=== PATIENT | male | born 1950 | race Caucasian/White ===

== ENCOUNTER 2018-02-27 05:56 | Inpatient (IN) | payer OTHER, MEDICARE ==
[~2018-02-27] VITALS: Ht 175.3 cm; Wt 95.7 kg
[2018-02-27] MEDS ORDERED: FLONASE NASAL S16 GM NS (06:22)
[2018-02-27] MEDS ORDERED: ZESTRIL30 MG PO (06:22)
[2018-02-27] MEDS ORDERED: LIPITOR20 MG PO (06:22)
[2018-02-27] MEDS ORDERED: EFUDEX40 GM TP (06:23)
[2018-02-27] MEDS ORDERED: MULTI VITAMINS1 TAB PO (06:23)
[2018-02-27] MEDS ORDERED: ASPIRIN 81M81 MG/TA2 PO (06:23)
[2018-02-27 06:36] LABS: BASO # 0.1 (0.0-0.2); BASO % 0.8 % (0.0-2.0); EOS # 0.1 (0.0-0.7); EOS % 1.1 % (0-4.0); GRAN # 7.6 (1.4-6.5); GRAN % 78.3 % (42.2-75.2); HEMATOCRIT 40.9 % (42.0-52.0); LYMPH # 1.3 (1.2-3.4); LYMPH % 13.2 % (20.0-51.0); MEAN CELL VOLUME 90 fl (80.0-100.0); MEAN CORPUSCULAR HEMOGLOBIN 31 pg (27.0-31.0); MEAN CORPUSCULAR HGB CONC 34 g/dl (33.0-37.0); MEAN PLATELET VOLUME 9.7 fl (7.4-10.4); MONO # 0.6 (0.1-0.6); MONO % 6.3 % (1.7-9.3); PLATELET COUNT 243 K/mm3 (130-400); RED BLOOD COUNT 4.55 M/mm3 (4.20-5.60); REDCELL DISTRIBUTION WIDTH-CV 12.3 % (11.5-14.5)
[2018-02-27 06:46] LABS: ALANINE AMINOTRANSFERASE 35 U/L (21-72); ALBUMIN 3.9 gm/dL (3.5-5.0); ALKALINE PHOSPHATASE 126 U/L (50-136); ANION GAP 12 mmol/L (7-16); AST,SGOT 30 U/L (15-37); BILIRUBIN,TOTAL 0.6 mg/dL (0.0-1.0); BLOOD UREA NITROGEN 19 mg/dL (9-20); CALCIUM 9.1 mg/dL (8.4-10.2); CARBON DIOXIDE 23 mmol/L (22-30); CHLORIDE 108 mmol/L (98-107); CREATININE, serum 0.96 mg/dL (0.66-1.25); GLUCOSE 121 mg/dL (74-106); POTASSIUM 3.9 mmol/L (3.4-5.0); SODIUM 143 mmol/L (137-145); TOTAL PROTEIN 7.4 gm/dL (6.4-8.2)
[2018-02-27] MEDS ORDERED: ZANTAC 7575 MG PO (06:47)
[2018-02-27 06:48] LABS: PROTHROMBIN TIME 11.3 SECONDS (9.7-12.8)
[2018-02-27 06:58] LABS: TROPONIN-I < 0.012 ng/mL (0.000-0.034)
[2018-02-27 11:48] VITALS: BP 150/94; PULSE 71; TEMP 98.3
[2018-02-27 17:06] VITALS: BP 153/94; PULSE 77; TEMP 98.5
[2018-02-27 19:46] VITALS: BP 157/81; PULSE 84; TEMP 98.9
[2018-02-27 23:39] VITALS: BP 148/94; PULSE 70; TEMP 97.8
[2018-02-28 04:16] VITALS: BP 150/97; PULSE 66; TEMP 97.9
[2018-02-28 06:47] LABS: BASO # 0.1 (0.0-0.2); BASO % 0.8 % (0.0-2.0); EOS # 0.1 (0.0-0.7); EOS % 1.8 % (0-4.0); GRAN # 4.2 (1.4-6.5); GRAN % 67.7 % (42.2-75.2); HEMATOCRIT 37.8 % (42.0-52.0); LYMPH # 1.2 (1.2-3.4); LYMPH % 19.8 % (20.0-51.0); MEAN CELL VOLUME 90 fl (80.0-100.0); MEAN CORPUSCULAR HEMOGLOBIN 31 pg (27.0-31.0); MEAN CORPUSCULAR HGB CONC 34 g/dl (33.0-37.0); MONO # 0.6 (0.1-0.6); MONO % 9.4 % (1.7-9.3); PLATELET COUNT 206 K/mm3 (130-400); REDCELL DISTRIBUTION WIDTH-CV 12.7 % (11.5-14.5)
[2018-02-28 07:06] LABS: CHOLESTEROL RISK RATIO 3.9; CREATININE, serum 0.83 mg/dL (0.66-1.25); POTASSIUM 3.7 mmol/L (3.4-5.0)
[2018-02-28 07:25] VITALS: BP 153/91; PULSE 79; TEMP 97.5
[2018-02-28 11:15] VITALS: BP 142/96; PULSE 77; TEMP 97.4
[2018-02-28] MEDS ORDERED: PLAVIX 75MG TAB75 MG PO (11:26)
[2018-02-28 15:39] VITALS: BP 166/77; PULSE 78; TEMP 97.5
== END 2018-02-28 18:20 | DRG 65 ==
LOC: COL.ER 05:56 → MEDICAL 06:56
PROVIDERS: Emergency Medicine; Physician Assistant
DX: I63.9 Cerebral infarction, unspecified (principal); G81.94 Hemiplegia, unspecified affecting left nondominant side; I10 Essential (primary) hypertension; E78.5 Hyperlipidemia, unspecified; K21.9 Gastro-esophageal reflux disease without esophagitis
CPT/HCPCS: 99223-AI; 99232-AI; 99239; A9585; J1650; J7030

== ENCOUNTER 2018-02-28 16:18 | Inpatient (IN) | payer OTHER, MEDICARE ==
[~2018-02-28] VITALS: Ht 175.3 cm; Wt 91.9 kg
[~2018-02-28 16:18] MED LIST: ASPIRIN 81M81 MG/TA2 PO; EFUDEX40 GM TP; FLONASE NASAL S16 GM NS; LIPITOR20 MG PO; MULTI VITAMINS1 TAB PO; PLAVIX 75MG TAB75 MG PO; ZANTAC 7575 MG PO; ZESTRIL30 MG PO
[2018-02-28 18:38] VITALS: BP 170/93; PULSE 80; TEMP 99.3
[2018-02-28 21:53] VITALS: BP 132/80; PULSE 69; TEMP 98.1
[2018-03-01 06:14] VITALS: BP 142/86; PULSE 66; TEMP 98.1
[2018-03-01 15:26] VITALS: BP 136/87; PULSE 75; TEMP 97.9
[2018-03-01 18:00] VITALS: BP 136/87; PULSE 75; TEMP 97.9
[2018-03-02 06:21] VITALS: BP 136/77; PULSE 79; TEMP 98.1
[2018-03-02 17:21] VITALS: BP 127/86; PULSE 78; TEMP 98.9
[2018-03-03 06:08] VITALS: BP 138/76; PULSE 76; TEMP 98.1
[2018-03-03 15:09] VITALS: BP 119/73; PULSE 85; TEMP 98
[2018-03-04 06:00] VITALS: BP 113/63; PULSE 71; TEMP 97.3
[2018-03-04 15:22] VITALS: BP 153/83; PULSE 81; TEMP 97.8
[2018-03-05 06:23] VITALS: BP 129/71; PULSE 66; TEMP 97.7
[2018-03-05 17:41] VITALS: BP 118/84; BP 133/95; PULSE 100; TEMP 98.5
[2018-03-06 03:49] VITALS: BP 107/51; PULSE 58; TEMP 97.6
[2018-03-06 15:37] VITALS: BP 141/71; PULSE 79; TEMP 98.5
[2018-03-06 19:22] VITALS: BP 160/86; PULSE 87; TEMP 98.1
[2018-03-07 05:34] VITALS: BP 125/59; PULSE 70; TEMP 98.5
[2018-03-07 15:42] VITALS: BP 129/72; PULSE 82; TEMP 97.8
[2018-03-08 05:21] VITALS: BP 126/63; PULSE 78; TEMP 98.1
[2018-03-08 15:20] VITALS: BP 128/86; PULSE 75; TEMP 97.7
[2018-03-09 06:23] VITALS: BP 116/66; PULSE 78; TEMP 98.1
[2018-03-09 16:46] VITALS: BP 144/77; PULSE 63; TEMP 97.6
[2018-03-10 06:00] VITALS: BP 135/73; PULSE 74; TEMP 97.9
[2018-03-10 18:39] VITALS: BP 138/79; PULSE 76; TEMP 8.3
[2018-03-11 05:36] VITALS: BP 131/72; PULSE 65; TEMP 97.8
[2018-03-11 16:34] VITALS: BP 111/78; PULSE 90; TEMP 98.6
[2018-03-12 06:00] VITALS: BP 113/71; PULSE 70; TEMP 97.5
[2018-03-12 15:43] VITALS: BP 120/75; PULSE 78; TEMP 99
[2018-03-13 06:00] VITALS: BP 108/55; PULSE 60; TEMP 97.8
[2018-03-13 16:22] VITALS: BP 128/78; PULSE 77; TEMP 98.2
[2018-03-14 05:59] VITALS: BP 135/75; PULSE 88; TEMP 98.3
[2018-03-14 16:06] VITALS: BP 121/80; PULSE 78; TEMP 97.2
[2018-03-15 05:22] VITALS: BP 120/50; PULSE 61; TEMP 97.8
[2018-03-15 17:39] VITALS: BP 135/79; PULSE 85; TEMP 99.2
[2018-03-16 05:20] VITALS: BP 122/66; PULSE 18; TEMP 98
[2018-03-16 18:09] VITALS: BP 124/67; PULSE 76; TEMP 98
[2018-03-17 05:20] VITALS: BP 119/68; PULSE 64; TEMP 98.6
[2018-03-17 18:43] VITALS: BP 133/65; PULSE 95; TEMP 98.1
[2018-03-18 06:45] VITALS: BP 136/81; PULSE 78; TEMP 98.1
[2018-03-18 15:52] VITALS: BP 123/62; PULSE 80; TEMP 98
[2018-03-19 05:51] VITALS: BP 113/61; PULSE 72; TEMP 98.4
[2018-03-19 15:32] VITALS: BP 107/70; PULSE 83; TEMP 98.4
[2018-03-20 05:11] VITALS: BP 117/66; PULSE 69; TEMP 97.9
[2018-03-20 15:41] VITALS: BP 116/74; PULSE 73; TEMP 98.5
[2018-03-21 05:56] VITALS: BP 109/55; PULSE 60; TEMP 98.3
[2018-03-21 14:46] VITALS: BP 116/70; PULSE 65; TEMP 97.6
[2018-03-22 05:57] VITALS: BP 132/64; PULSE 79; TEMP 98
[2018-03-22 15:24] VITALS: BP 122/61; PULSE 79; TEMP 98.4
[2018-03-23 06:26] VITALS: BP 120/68; PULSE 68; TEMP 98
[2018-03-23 17:12] VITALS: BP 145/85; PULSE 75; TEMP 97.8
[2018-03-24 05:27] VITALS: BP 113/59; PULSE 63; TEMP 98
[2018-03-24 15:58] VITALS: BP 112/85; PULSE 77; TEMP 98.2
[2018-03-25 04:52] VITALS: BP 122/76; PULSE 65; TEMP 97.7
[2018-03-25 13:13] VITALS: BP 133/69; PULSE 76; TEMP 98.2
[2018-03-25 15:16] VITALS: BP 132/69; PULSE 87; TEMP 97.8
[2018-03-26 05:44] VITALS: BP 133/73; PULSE 63; TEMP 97.9
[2018-03-26 17:12] VITALS: BP 134/83; PULSE 80; TEMP 98.2
[2018-03-27 06:00] VITALS: BP 123/75; PULSE 67; TEMP 98
[2018-03-27 15:15] VITALS: BP 125/64; PULSE 94; TEMP 98
[2018-03-28 04:50] VITALS: BP 128/73; PULSE 70; TEMP 98.3
[2018-03-28 18:30] VITALS: BP 125/74; PULSE 88; TEMP 98.2
[2018-03-29 05:33] VITALS: BP 105/58; PULSE 70; TEMP 98.4
[2018-03-29 17:00] VITALS: BP 124/70; PULSE 78; TEMP 97.9
[2018-03-30 04:59] VITALS: BP 132/72; PULSE 63; TEMP 97.5
[2018-03-30 18:25] VITALS: BP 124/70; PULSE 77; TEMP 98
[2018-03-31 05:27] VITALS: BP 124/65; PULSE 67; TEMP 98.1
[2018-03-31 17:55] VITALS: BP 130/70; PULSE 75; TEMP 98.1
[2018-04-01 05:21] VITALS: BP 118/59; PULSE 65; TEMP 98
[2018-04-01 15:43] VITALS: BP 106/73; PULSE 84; TEMP 97.4
[2018-04-02 05:23] VITALS: BP 117/48; BP 158/79; PULSE 66; PULSE 75; TEMP 97.9; TEMP 98
[2018-04-02 14:59] VITALS: BP 106/64; PULSE 97; TEMP 97.9
[2018-04-03 05:37] VITALS: BP 108/60; PULSE 64; TEMP 97.8
[2018-04-03 17:17] VITALS: BP 118/71; PULSE 77; TEMP 98.2
[2018-04-04 05:02] VITALS: BP 119/77; PULSE 72; TEMP 98.1
[2018-04-04 18:11] VITALS: BP 136/69; PULSE 76; TEMP 97.7
[2018-04-05 05:34] VITALS: BP 130/77; PULSE 74; TEMP 98.1
[2018-04-05] MEDS ORDERED: CELEXA 20MG20 MG/TAB PO (08:25)
[2018-04-05] MEDS ORDERED: TYLENOL 325MG325 MG PO (08:25)
[2018-04-05] MEDS ORDERED: SENOKOT S 50 MG1 TAB PO (08:26)
[2018-04-05] MEDS ORDERED: COLACE 100100 MG/CAP PO (08:26)
[2018-04-05] MEDS ORDERED: PREPH RC (08:27)
== END 2018-04-05 12:50 | disposition home health service (06) | DRG 57 ==
DX: I69.354 Hemiplegia and hemiparesis following cerebral infarction affecting left non-dominant side (principal); I69.392 Facial weakness following cerebral infarction; M21.372 Foot drop, left foot; I10 Essential (primary) hypertension; I69.391 Dysphagia following cerebral infarction; R13.10 Dysphagia, unspecified; F32.9 Major depressive disorder, single episode, unspecified; K21.9 Gastro-esophageal reflux disease without esophagitis
CPT/HCPCS: 99222-AI; 99232-AI; 99239; J1650

== ENCOUNTER → 2018-07-08 | Outpatient (RCR) | payer OTHER, MEDICARE ==
[~2018-07-08] MED LIST changes: +CELEXA 20MG20 MG/TAB PO; +COLACE 100100 MG/CAP PO; +PREPH RC; +SENOKOT S 50 MG1 TAB PO; +TYLENOL 325MG325 MG PO
== END | disposition still patient (30) ==
LOC: WSOT → WSPT 04-09 12:23 → WSOT 04-09 13:30 → WSPT 04-11 10:30 → WSOT 04-22 08:00 → WSPT 04-25 10:15 → WSOT 05-07 08:00 → WSPT 05-15 08:30 → WSOT 05-17 10:00 → WSPT 05-24 09:30 → MKS.ESL.OT 05-28 15:00 → WSPT 05-29 13:00 → MKS.ESL.OT 05-30 14:15 → WSPT 05-31 09:00 → WSOT 06-05 08:30 → WSPT 06-10 09:00 → WSOT 06-12 10:00 → WSPT 06-14 09:30 → WSOT 06-17 15:00 → WSPT 06-19 09:15 → WSOT 06-28 09:00 → WSPT 07-03 14:30 → WSOT 07-05 09:00
DX: I69.354 Hemiplegia and hemiparesis following cerebral infarction affecting left non-dominant side (principal)

== ENCOUNTER 2018-10-07 10:00 | Outpatient (RCR) | payer OTHER | END 2018-10-08 | disposition home or self-care (01) | LOC: WSPT | DX: I69.354 Hemiplegia and hemiparesis following cerebral infarction affecting left non-dominant side (principal); Z79.01 Long term (current) use of anticoagulants; Z79.82 Long term (current) use of aspirin; Z79.899 Other long term (current) drug therapy ==

== ENCOUNTER 2019-01-06 10:00 | Outpatient (RCR) | payer OTHER | END 2019-01-07 | disposition home or self-care (01) | LOC: WSPT | DX: I69.344 Monoplegia of lower limb following cerebral infarction affecting left non-dominant side (principal); Z79.01 Long term (current) use of anticoagulants; Z79.82 Long term (current) use of aspirin; Z79.899 Other long term (current) drug therapy ==

== ENCOUNTER → 2019-01-08 | Outpatient (CLI) | payer OTHER | LOC: COL.RAD 07:23 | DX: K82.4 Cholesterolosis of gallbladder (principal); R17 Unspecified jaundice; R94.5 Abnormal results of liver function studies ==

== ENCOUNTER 2019-04-07 13:00 | Outpatient (RCR) | payer OTHER | END 2019-04-08 | LOC: MKS.ESL.OT | DX: I69.354 Hemiplegia and hemiparesis following cerebral infarction affecting left non-dominant side (principal) ==

== ENCOUNTER 2019-07-07 11:15 | Outpatient (RCR) | payer OTHER | END 2019-07-08 | disposition home or self-care (01) | LOC: MKS.ESL.OT | DX: I63.9 Cerebral infarction, unspecified (principal); M25.552 Pain in left hip ==

== ENCOUNTER 2019-10-06 14:15 | Outpatient (RCR) | payer OTHER | END 2019-10-07 | disposition home or self-care (01) | LOC: MKS.ESL.OT | DX: I69.354 Hemiplegia and hemiparesis following cerebral infarction affecting left non-dominant side (principal) ==

== ENCOUNTER → 2020-06-08 | Outpatient (RCR) | payer OTHER, MEDICARE | END | disposition home or self-care (01) | LOC: MKS.ESL.PT → MKS.ESL.OT 03-23 14:45 → MKS.ESL.PT 03-24 09:00 → MKS.ESL.OT 03-25 14:45 → MKS.ESL.PT 03-29 09:00 → MKS.ESL.OT 03-30 14:45 → MKS.ESL.PT 03-31 09:00 → MKS.ESL.OT 04-01 14:00 → MKS.ESL.PT 04-07 09:00 → MKS.ESL.OT 04-08 14:00 → MKS.ESL.PT 04-09 11:00 → MKS.ESL.OT 04-13 14:45 → MKS.ESL.PT 04-14 09:00 → MKS.ESL.OT 04-15 14:00 → MKS.ESL.PT 04-21 09:45 → MKS.ESL.OT 04-27 13:00 → MKS.ESL.PT 04-28 09:00 → MKS.ESL.OT 04-29 14:00 → MKS.ESL.PT 05-03 10:30 → MKS.ESL.OT 05-04 14:45 → MKS.ESL.PT 05-05 10:45 → MKS.ESL.OT 05-06 14:00 → MKS.ESL.PT 05-10 15:45 → MKS.ESL.OT 05-11 13:00 → MKS.ESL.PT 05-12 09:00 → MKS.ESL.OT 05-13 14:00 → MKS.ESL.PT 05-17 10:15 → MKS.ESL.OT 05-18 13:00 → MKS.ESL.PT 05-19 09:00 → MKS.ESL.OT 05-20 13:00 → MKS.ESL.PT 05-24 15:15 → MKS.ESL.OT 05-25 13:00 → MKS.ESL.PT 05-26 13:15 → MKS.ESL.OT 05-27 13:00 → MKS.ESL.PT 05-31 10:15 → MKS.ESL.OT 06-01 13:00 → MKS.ESL.PT 06-02 09:45 → MKS.ESL.OT 06-03 11:15 → MKS.ESL.PT 06-07 10:15 → MKS.ESL.OT 13:00 | DX: I63.9 Cerebral infarction, unspecified (principal) ==

== ENCOUNTER 2020-07-22 13:00 | Outpatient (RCR) | payer OTHER, MEDICARE | END 2020-09-07 | disposition home or self-care (01) | LOC: MKS.ESL.OT | DX: I69.354 Hemiplegia and hemiparesis following cerebral infarction affecting left non-dominant side (principal) ==

== ENCOUNTER 2020-09-21 15:40 | Outpatient (RCR) | payer OTHER, MEDICARE | END 2020-09-21 15:43 | disposition home or self-care (01) | LOC: MKS.ESL.OT 15:40 | DX: I63.89 Other cerebral infarction (principal) ==

== ENCOUNTER → 2020-10-21 | Outpatient (RCR) | payer OTHER, MEDICARE | END | disposition home or self-care (01) | LOC: MKS.ESL.PT → MKS.ESL.OT 07-27 13:00 → MKS.ESL.PT 07-28 14:30 → MKS.ESL.OT 07-29 13:00 → MKS.ESL.PT 08-02 09:30 → MKS.ESL.OT 08-03 13:00 → MKS.ESL.PT 08-04 14:30 → MKS.ESL.OT 08-05 13:00 → MKS.ESL.PT 08-09 09:30 → MKS.ESL.OT 08-10 13:00 → MKS.ESL.PT 08-13 10:00 → MKS.ESL.OT 08-17 13:00 → MKS.ESL.PT 08-18 16:15 → MKS.ESL.OT 08-19 13:00 → MKS.ESL.PT 08-25 10:30 → MKS.ESL.OT 08-26 13:00 → MKS.ESL.PT 08-30 09:30 → MKS.ESL.OT 08-31 13:00 → MKS.ESL.PT 09-03 09:45 → MKS.ESL.OT 09-09 13:00 → MKS.ESL.PT 09-13 09:30 → MKS.ESL.OT 09-14 13:00 → MKS.ESL.PT 09-15 09:30 → MKS.ESL.OT 10-05 13:00 → MKS.ESL.PT 10-07 12:15 → MKS.ESL.OT 10-12 13:00 → MKS.ESL.PT 10-18 09:15 → MKS.ESL.OT 13:00 | DX: I63.9 Cerebral infarction, unspecified (principal) ==

== ENCOUNTER → 2020-10-25 | Outpatient (RCR) | payer OTHER, MEDICARE | LOC: MKS.ESL.PT | DX: I63.9 Cerebral infarction, unspecified (principal) ==

== ENCOUNTER 2021-01-20 13:30 | Outpatient (RCR) | payer MEDICARE, BC | END 2021-01-24 | disposition home or self-care (01) | LOC: MKS.ESL.OT | DX: I63.9 Cerebral infarction, unspecified (principal) ==

== ENCOUNTER 2021-04-22 09:30 | Outpatient (RCR) | payer BC, MEDICARE | END 2021-04-25 | disposition still patient (30) | LOC: MKS.ESL.PT | DX: I69.352 Hemiplegia and hemiparesis following cerebral infarction affecting left dominant side (principal) | CPT/HCPCS: G0283-GP ==

== ENCOUNTER → 2021-07-25 | Outpatient (RCR) | payer BC, MEDICARE | END | disposition home or self-care (01) | LOC: MKS.ESL.PT → MKS.ESL.OT 04-29 11:15 → MKS.ESL.PT 05-02 09:30 → MKS.ESL.OT 05-03 13:00 → MKS.ESL.PT 05-04 09:30 → MKS.ESL.OT 05-05 13:30 → MKS.ESL.PT 05-06 09:30 → MKS.ESL.OT 05-10 13:00 → MKS.ESL.PT 05-11 09:30 → MKS.ESL.OT 05-12 13:30 → MKS.ESL.PT 05-13 15:45 → MKS.ESL.OT 05-17 13:00 → MKS.ESL.PT 05-18 09:30 → MKS.ESL.OT 05-19 13:30 → MKS.ESL.PT 05-23 09:30 → MKS.ESL.OT 05-24 13:00 → MKS.ESL.PT 05-25 09:30 → MKS.ESL.OT 05-26 13:30 → MKS.ESL.PT 05-30 09:30 → MKS.ESL.OT 05-31 13:00 → MKS.ESL.PT 06-01 09:30 → MKS.ESL.OT 06-02 13:30 → MKS.ESL.PT 06-06 09:30 → MKS.ESL.OT 06-07 13:00 → MKS.ESL.PT 06-08 09:30 → MKS.ESL.OT 06-09 13:30 → MKS.ESL.PT 06-13 09:30 → MKS.ESL.OT 06-14 13:00 → MKS.ESL.PT 06-15 09:30 → MKS.ESL.OT 06-23 13:30 → MKS.ESL.PT 06-29 09:30 → MKS.ESL.OT 06-30 13:30 → MKS.ESL.PT 07-04 09:30 → MKS.ESL.OT 07-05 13:00 → MKS.ESL.PT 07-06 09:30 → MKS.ESL.OT 07-07 13:30 → MKS.ESL.PT 07-11 09:30 → MKS.ESL.OT 07-12 13:00 → MKS.ESL.PT 07-13 09:30 → MKS.ESL.OT 07-14 13:30 → MKS.ESL.PT 07-18 09:30 → MKS.ESL.OT 07-21 13:30 → MKS.ESL.PT 09:30 | DX: I63.9 Cerebral infarction, unspecified (principal) ==

== ENCOUNTER 2021-10-20 13:30 | Outpatient (RCR) | payer BC, MEDICARE | END 2021-10-21 | disposition home or self-care (01) | LOC: MKS.ESL.OT | DX: I69.352 Hemiplegia and hemiparesis following cerebral infarction affecting left dominant side (principal) ==

== ENCOUNTER 2021-12-13 09:30 | Outpatient (RCR) | payer BC, MEDICARE | END 2021-12-19 | disposition home or self-care (01) | LOC: MKS.ESL.PT | DX: I69.354 Hemiplegia and hemiparesis following cerebral infarction affecting left non-dominant side (principal) ==

== ENCOUNTER 2022-01-17 09:30 | Outpatient (RCR) | payer BC, MEDICARE | END 2022-01-19 | LOC: MKS.ESL.PT | DX: I63.9 Cerebral infarction, unspecified (principal) ==

== ENCOUNTER 2022-02-17 09:30 | Outpatient (RCR) | payer BC, MEDICARE | END 2022-02-18 | disposition home or self-care (01) | LOC: MKS.ESL.PT | DX: I69.352 Hemiplegia and hemiparesis following cerebral infarction affecting left dominant side (principal) ==

== ENCOUNTER → 2022-03-21 | Outpatient (RCR) | payer BC, MEDICARE | END | disposition home or self-care (01) | LOC: MKS.ESL.PT → MKS.ESL.OT 03-07 10:30 → MKS.ESL.PT 03-08 08:30 | DX: I69.352 Hemiplegia and hemiparesis following cerebral infarction affecting left dominant side (principal) ==

== ENCOUNTER 2022-04-11 09:45 | Outpatient (RCR) | payer BC, MEDICARE | END 2022-04-20 | disposition home or self-care (01) | LOC: MKS.ESL.PT | DX: Z86.73 Personal history of transient ischemic attack (TIA), and cerebral infarction without residual deficits (principal) ==

== ENCOUNTER 2022-05-18 10:30 | Outpatient (RCR) | payer BC, MEDICARE | END 2022-05-21 | disposition home or self-care (01) | LOC: MKS.ESL.OT | DX: I69.352 Hemiplegia and hemiparesis following cerebral infarction affecting left dominant side (principal) ==

== ENCOUNTER 2022-06-20 09:30 | Outpatient (RCR) | payer BC, MEDICARE | END 2022-06-21 | disposition home or self-care (01) | LOC: MKS.ESL.PT | DX: I69.352 Hemiplegia and hemiparesis following cerebral infarction affecting left dominant side (principal) ==

== ENCOUNTER 2022-08-17 09:30 | Outpatient (RCR) | payer BC, MEDICARE | END 2022-08-21 | disposition home or self-care (01) | LOC: MKS.ESL.PT | DX: I69.354 Hemiplegia and hemiparesis following cerebral infarction affecting left non-dominant side (principal) ==

== ENCOUNTER 2023-01-18 09:30 | Outpatient (RCR) | payer BC, MEDICARE | END 2023-01-19 | disposition home or self-care (01) | LOC: MKS.ESL.PT | DX: I63.9 Cerebral infarction, unspecified (principal); G81.94 Hemiplegia, unspecified affecting left nondominant side ==

== ENCOUNTER 2023-02-13 09:30 | Outpatient (RCR) | payer BC, MEDICARE | END 2023-02-18 | disposition home or self-care (01) | LOC: MKS.ESL.PT | DX: I69.354 Hemiplegia and hemiparesis following cerebral infarction affecting left non-dominant side (principal) ==

== ENCOUNTER 2023-06-19 09:45 | Outpatient (RCR) | payer MEDICARE, OTHER | END 2023-06-21 | disposition home or self-care (01) | LOC: MKS.ESL.PT | DX: I69.352 Hemiplegia and hemiparesis following cerebral infarction affecting left dominant side (principal) ==

== ENCOUNTER 2023-09-18 13:45 | Outpatient (RCR) | payer MEDICARE, OTHER | END 2023-09-20 | disposition home or self-care (01) | LOC: MKS.ESL.PT | DX: I69.352 Hemiplegia and hemiparesis following cerebral infarction affecting left dominant side (principal) ==

== ENCOUNTER 2023-10-16 14:30 | Outpatient (RCR) | payer MEDICARE, OTHER | END 2023-10-21 | disposition home or self-care (01) | LOC: MKS.ESL.OT | DX: I69.352 Hemiplegia and hemiparesis following cerebral infarction affecting left dominant side (principal) ==

== ENCOUNTER 2023-12-18 10:30 | Outpatient (RCR) | payer MEDICARE, OTHER | END 2023-12-20 | disposition home or self-care (01) | LOC: MKS.ESL.OT | DX: I69.352 Hemiplegia and hemiparesis following cerebral infarction affecting left dominant side (principal) ==

== ENCOUNTER 2024-01-15 09:45 | Outpatient (RCR) | payer MEDICARE, OTHER | END 2024-01-20 | disposition home or self-care (01) | LOC: MKS.ESL.PT | DX: I69.352 Hemiplegia and hemiparesis following cerebral infarction affecting left dominant side (principal) | CPT/HCPCS: G0283-GP ==

== ENCOUNTER 2024-03-18 09:45 | Outpatient (RCR) | payer MEDICARE, OTHER | END 2024-03-21 | LOC: MKS.ESL.OT | DX: I69.352 Hemiplegia and hemiparesis following cerebral infarction affecting left dominant side (principal) ==

== ENCOUNTER 2024-04-15 09:45 | Outpatient (RCR) | payer MEDICARE, OTHER | END 2024-04-20 | LOC: MKS.ESL.PT | DX: I69.352 Hemiplegia and hemiparesis following cerebral infarction affecting left dominant side (principal) ==

== ENCOUNTER 2024-05-20 10:30 | Outpatient (RCR) | payer MEDICARE, OTHER | END 2024-05-21 | disposition home or self-care (01) | LOC: MKS.ESL.OT | DX: I69.352 Hemiplegia and hemiparesis following cerebral infarction affecting left dominant side (principal) ==